=== PATIENT | male | born 2005 | race Caucasian/White ===

== ENCOUNTER 2024-01-13 14:37 | Emergency (ER) | payer MEDICAID ==
[~2024-01-13] VITALS: Ht 172.7 cm; Wt 60.0 kg
[2024-01-13 14:53] VITALS: O2SAT 99
[2024-01-13 15:49] LABS: BASOPHILS % 0.4 % (0.0-2.0); HEMATOCRIT. 49.9 % (42.0-52.0); HEMOGLOBIN. 17.5 g/dL (14.0-18.0); LYMPHOCYTES % 11.8 % (20.0-50.0); MEAN CORPUSCULAR HEMOGLOBIN 31.9 pg (28.0-32.0); MEAN CORPUSCULAR VOLUME 91.3 fL (80.0-94.0); MEAN PLATELET VOLUME 9.5 fl (7.4-10.4); MONOCYTES % 3.4 % (2.0-8.0); NEUTROPHILS % 84.4 % (40.0-76.0); PLATELET 310 x1000/uL (130-400); RED BLOOD CELL COUNT 5.46 mill/uL (4.7-6.1); RED CELL DISTRIBUTION WIDTH 13.5 % (11.6-14.6); WHITE BLOOD COUNT 8.4 x1000/uL (4.5-11.0)
[2024-01-13 15:57] LABS: CHLORIDE 109 mEq/L (98-107); POTASSIUM 3.7 mEq/L (3.5-5.1); SODIUM 145 mEq/L (136-145)
[2024-01-13 15:58] LABS: CALCIUM 10.5 mg/dL (8.7-10.4); CARBON DIOXIDE 21 mEq/L (21-32)
[2024-01-13 16:03] LABS: CREATININE 0.9 mg/dL (0.6-1.3); GLUCOSE 133 mg/dL (70-105); UREA NITROGEN BLOOD 7 mg/dL (9-23)
[2024-01-13 16:05] LABS: ALANINE AMINOTRANSFERASE 15 IU/L (10-49); ALBUMIN 5.2 g/dL (3.2-4.8); ASPARTATE AMINOTRANSFERASE 24 IU/L (<34); BILIRUBIN DIRECT 0.7 mg/dL (<=3.0)
[2024-01-13 16:06] LABS: BILIRUBIN TOTAL 2.1 mg/dL (0.1-1.0); PROTEIN TOTAL 8.5 g/dL (6.0-8.3)
[2024-01-13] MEDS: FAMOTIDINE 20MG TABLET PO ONE (16:15)
[2024-01-13] MEDS: MAGNESIUM/ALUMINUM HYDROXIDE/SIMETHICONE 30ML UDC PO ONE (16:15)
[2024-01-13] MEDS: ACETAMINOPHEN 325MG TABLET PO ONE (16:15)
[2024-01-13] MEDS: HALOPERIDOL LACTATE 5MG/ML VIAL IM ONE (16:18)
[2024-01-13] MEDS: ONDANSETRON 4MG ODT PO ONE (16:18)
[2024-01-13 16:30] VITALS: BP 144/68; PULSE 71; RESP 16; TEMP 36.94740; O2SAT 100
== END 2024-01-13 17:00 | disposition home or self-care (01) ==
LOC: ER 14:37
DX: K29.20 Alcoholic gastritis without bleeding (principal); F12.10 Cannabis abuse, uncomplicated
CPT/HCPCS: 99284; 80076; 80048; 83690; 85025; 36415; 96372; Q0162; J1630